=== PATIENT | male | born 2000 | race Caucasian/White ===

== ENCOUNTER 2025-01-31 12:56 | Emergency (ER) | payer MEDICAID, SELFPAY ==
--- NOTE | ~2025-01-31 | CT_ITS ---
CLINICAL HISTORY: large indurated abscess on R UE, HX of IVDU CT right upper extremity with contrast Comparison: None provided Findings: No significant degenerative change. No acute fractures or dislocations. Mildly diffuse subcutaneous edema along the distal aspect of the posterior humeral tissues suggesting cellulitis. Ill-defined small anterior region of focal convex soft tissue edema along the anterior distal humeral tissues just proximal to the antecubital fossa, may reflect developing abscess series 6, image 94 measuring 1.9 x 1.9 cm abutting the intramuscular compartment anteriorly. No soft tissue gas. Right axillary lymphadenopathy, likely reactive. IMPRESSION: 1. Distal cellulitis with a suspected small developing soft tissue abscess just proximal to the antecubital fossa. 2. Mild reactive axillary adenopathy. This document has been electronically signed by: Rex Fulton MD on 01/31/2025 18:49:37
[2025-01-31 13:11] VITALS: BP 102/76; BP 112/86; PULSE 55; PULSE 68; RESP 12; TEMP 36.8; O2SAT 96; O2SAT 97; BMI 25.7
[2025-01-31 13:21] VITALS: BP 112/86; PULSE 55; RESP 12; TEMP 36.8; O2SAT 96
--- NOTE | 2025-01-31 13:21 | PC.NURSE ---
Pt requests nicotine patch
--- NOTE | 2025-01-31 13:25 | PC.NURSE ---
Pt has been at [facility] 5 days. Was not able to take suboxone today.
--- NOTE | 2025-01-31 14:20 | ED.EXTPRO ---
HPI - Extremity Problem General Chief complaint: Extremity Problem Stated complaint: RUE ABSCESS FOR DAYS FROM FACILITY PER EMS Time Seen by Provider: 01/31/25 13:53 Source: patient, RN notes reviewed and old records reviewed Mode of arrival: ambulatory Limitations: no limitations History of Present Illness ED Provider: ANA M Mendez HPI Narrative: 24-year-old male with medical history of cocaine use disorder, inguinal hernia, hepatitis-C, presents to the ED from [facility] on section 12, for 1 week of mass on R UE. Patient states mass has been getting larger with increased pain. Patient states he has history of IVDU injecting cocaine into this area. Patient reports he has not used drugs or injected in this area for the past 2 weeks. Denies fever, chills, nausea, vomiting, abdominal pain. Related Data Previous Rx's ?Medication ?Instructions ?Recorded cephalexin 500 mg capsule 500 mg PO BID 7 days #14 caps 01/31/25 doxycycline hyclate 100 mg capsule 100 mg PO BID 7 days #14 caps 01/31/25 Allergies Allergy/AdvReac Type Severity Reaction Status Date / Time prednisone AdvReac Unknown Verified 01/31/25 13:20 Review of Systems Review of Systems: CONST: Negative for fever, body aches and chills. HENT: Negative for neck pain/stiffness, headache, congestion, sore throat, swelling. EYES: Negative for discharge/pain or vision changes. RESP: Negative for cough/hemoptysis and shortness of breath. CV: Negative chest pain, difficulty breathing, palpitations. ABD: Negative pain, nausea, vomiting. : Negative increase frequency, dysuria, blood in urine or stool. MUSC: Negative for muscle aches, edema. SKIN: Negative rash, lesions/sores. POS painful mass of R UE NEURO: Negative headache, dizziness, weakness. Yes all other systems are reviewed and are negative PMFSH Past Medical History Attestation statement: The following information was validated with the patient. Source: old records reviewed and nursing notes reviewed Social History Social History Smoked in Last 30 Days: Yes Use of substances other than those prescribed or required for medical reasons: Yes Substance Use Type: Crack/Cocaine Substance Use Frequency: Chronic Longstanding Advance Directives: No Advance Directives Information Provided: Yes Physical Exam Vital Signs: Vital Signs: Last Vital Signs Temp 98.3 F 01/31/25 13:21 Pulse 55 01/31/25 13:21 Resp 12 01/31/25 13:21 BP 112/86 01/31/25 13:21 Pulse Ox 96 01/31/25 13:21 O2 Del Method Room Air 01/31/25 13:21 BMI result Body Mass Index 25.7 GENERAL APPEARANCE: ?AxOx4, generally well-appearing, no acute distress. HEENT: ?NC, AT. MMM. EOMI, clear conjunctiva, oropharynx clear. NECK: ?Supple without lymphadenopathy.? No stiffness or restricted ROM. HEART:? Normal rate and regular rhythm, normal S1/S1, no m/r/g LUNGS:? CTAB, moving air well. No crackles or wheezes are heard. ABDOMEN: ?Soft, nontender, nondistended, no rigidity. There is a small reducible hernia of the R inguinal area without warmth, erythema. BACK: No CVAT, no obvious deformity. EXTREMITIES: ?Without cyanosis, clubbing or edema. There is a plum sized mass of the RUE with erythema and mild warmth, area is indurated with scarring from previous IVDU, no fluctuance, no active drainage. NEUROLOGICAL: ?Grossly nonfocal. Alert and oriented, moving all 4 extremities. Observed to ambulate with normal gait. Skin: ?Warm and dry without any rash. Medications Administered Discontinued Medications Generic Name Dose Route Start Last Admin Trade Name Freq PRN Reason Stop Dose Admin Iohexol 100 ml 01/31/25 18:17 01/31/25 18:19 Iohexol 350 Mg/Ml 100 Ml Infus..Btl IV 01/31/25 18:18 85 ml ONCE ONE Administration Medical Decision Making Medical Decision Making MDM Narrative: 24-year-old male with medical history of cocaine use disorder, inguinal hernia, hepatitis-C, presents to the ED from [facility] on section 12, for 1 week of mass on R UE. Patient states mass has been getting larger with increased pain. Patient states he has history of IVDU injecting cocaine into this area. Patient reports he has not used drugs or injected in this area for the past 2 weeks. Denies fever, chills, nausea, vomiting, abdominal pain. VS on initial observation-BP 112/86, pulse rate of 55, respiratory rate of 12, afebrile with oral temp of 98.3?, O2 saturation 96% on room air. Plan: labs, LIZ, CT R humerus Labs without leukocytosis/leukopenia, H&H stable, ESR elevated at 16, transaminitis with AST of 50, ALT 45, elevated CRP at 1.21 CT of right humerus reveals distal cellulitis with a suspected small developing soft tissue abscess proximal to the antecubital fossa, with mild reactive axillary adenopathy. Abscess of right upper extremity is indurated, without fluctuance, no active drainage, no indication for I and D at this time. Patient will be discharged back to [facility] with 7 day course of Keflex and doxycycline for bacterial coverage. I counseled patient on strict return precautions, patient is in agreement with the plan. Differential Diagnosis Differential Diagnoses: The differential diagnosis associated with the presentation includes Osteomyelitis Cellulitis Abscess Admission/Observation Consideration of admission/observation: Escalation of care including admission/observation considered Lab Data MDM Lab Attestation statement: I reviewed the patient's lab results. 01/31/25 15:08 01/31/25 15:08 Labs: Lab Results 01/31/25 01/31/25 01/31/25 Range/Units 15:08 15:37 15:38 WBC 8.3 (4.8-10.8) X10*3/uL RBC 4.15 L (4.60-5.80) X10*6/uL Hgb 13.0 L (14.0-18.0) g/dl Hct 39.3 L (42.0-52.0) % MCV 94.7 (80.0-98.0) fL MCH 31.3 (27.0-33.0) pg MCHC 33.1 (31.0-36.0) g/dl RDW 13.9 (11.0-16.0) % Plt Count 303 (160-400) X10*3/uL MPV 9.0 L (9.4-12.4) fL Immature Gran % (Auto) 0.4 (0.0-0.4) % Neut % (Auto) 66.2 (45-73) % Lymph % (Auto) 27.2 (20-40) % Whitman % (Auto) 4.7 (2-11) % Eos % (Auto) 0.8 (0-4) % Baso % (Auto) 0.7 (0-2) % Lymph # (Auto) 2.3 (1.2-4.9) X10*3/uL Whitman # (Auto) 0.4 (0.1-1.2) X10*3/uL Eos # (Auto) 0.1 (0.0-0.4) X10*3/uL Baso # (Auto) 0.1 (0.0-0.2) X10*3/uL Abs Immat Gran (auto) 0.03 (0.00-0.03) X10*3/uL Absolute Neuts (auto) 5.5 (2.0-8.3) x10*3/uL Absolute Nucleated RBC 0.000 (0.0-0.012) X10*3/uL Nucleated RBC % (auto) 0.0 (0.0-0.2) /100WBC ESR 16 H (0-15) MM/HR Sodium 139 (135-145) mmol/L Potassium 4.1 (3.3-5.1) mmol/L Chloride 101 (96-108) mmol/L Carbon Dioxide 27 (22-29) mmol/L Anion Gap 15 (12-20) BUN 16 (9-16) mg/dL Creatinine 1.35 (0.5-1.4) mg/dL Estim Creat Clear Calc 86.3 Estimated GFR > 60 Random Glucose 81 (60-115) mg/dL Lactic Acid 1.3 (0.5-2.0) mmol/L Calcium 9.8 (8.4-10.2) mg/dL Magnesium 2.1 (1.6-2.6) mg/dL Total Bilirubin 0.2 (0.0-1.0) mg/dL AST 50 H (5-37) U/L ALT 45 H (0-40) U/L Alkaline Phosphatase 69 (39-117) U/L C-Reactive Protein 1.21 H (< or = 0.50) mg/dL Total Protein 7.7 (6.5-8.0) g/dL Albumin 4.6 (3.5-5.0) g/dL Independent Interpretation I performed an independent interpretation of an: CT Scan Interpretation: I personally interpreted the CT of the right humerus which reveals small abscess, without gas in the tissue or osteomyelitis, I agree with the radiologist's interpretation Radiology Impression Discussion of test interpretation with radiology: I have reviewed the radiologist's reading. Radiologist Impression: CT R humerus Findings: No significant degenerative change. No acute fractures or dislocations. Mildly diffuse subcutaneous edema along the distal aspect of the posterior humeral tissues suggesting cellulitis. Ill-defined small anterior region of focal convex soft tissue edema along the anterior distal humeral tissues just proximal to the antecubital fossa, may reflect developing abscess series 6, image 94 measuring 1.9 x 1.9 cm abutting the intramuscular compartment anteriorly. No soft tissue gas. Right axillary lymphadenopathy, likely reactive. IMPRESSION: 1. Distal cellulitis with a suspected small developing soft tissue abscess just proximal to the antecubital fossa. 2. Mild reactive axillary adenopathy. This document has been electronically signed by: Rex Fulton MD on 01/31/2025 18:49:37 Dictated By: Rex Fulton MD Signed By: <Electronically signed by Rex Fulton MD in OV> 01/31/25 3399 External Record Review External record reviewed: Inpatient record, Office record and Outpatient record Chronic Conditions Patient?s care impacted by: Other (Cocaine use disorder, IVDU, right-sided inguinal hernia, hepatitis-C) Social Determinants Patient?s care significantly limited by Social Determinants of Health including: Other Social Determinant of Health Discharge Plan Discharge Clinical Impression: Abscess Patient Disposition: Xfer [facility]iatric [facility]osp Instructions: Abscess (ED) Additional Instructions: You were evaluated in the ED today due to an abscess of your right arm. Your CT scan today shows the abscess is in a very early stage, and does not involve the soft tissue, muscle or bones. The abscess is not ready for drainage as it is very hard. You are being discharged with a 7 day course of Keflex and doxycycline for bacterial coverage. Additionally please do warm compresses to the area twice a day until the area resolves and/or is ready for drainage. Please return to the emergency department if you experience fevers over 100.4? that are not controlled by Tylenol or Motrin, worsening pain of your right arm, pus like drainage from the right arm, or any new/worsening/concerning symptoms. Prescriptions: New cephalexin 500 mg capsule 500 mg PO BID 7 Days Qty: 14 0RF doxycycline hyclate 100 mg capsule 100 mg PO BID 7 Days Qty: 14 0RF Print Language: Khmer
[2025-01-31 15:12] LABS: MANUAL DIFF FLAG NO
[2025-01-31 15:15] LABS: Hematocrit 39.3 % (42.0-52.0); Hemoglobin 13.0 g/dl (14.0-18.0); Imm Gran Abs Auto 0.03 X10*3/uL (0.00-0.03); Imm Gran Pct Auto 0.4 % (0.0-0.4); Lymphocytes Absolute Auto 2.3 X10*3/uL (1.2-4.9); Mean Corpuscular HGB Conc 33.1 g/dl (31.0-36.0); Mean Corpuscular Hemoglobin 31.3 pg (27.0-33.0); Mean Corpuscular Volume 94.7 fL (80.0-98.0); NRBC Abs Auto 0.000 X10*3/uL (0.0-0.012); NRBC Pct Auto 0.0 /100WBC (0.0-0.2); Platelet Count 303 X10*3/uL (160-400); Red Blood Count 4.15 X10*6/uL (4.60-5.80); White Blood Count 8.3 X10*3/uL (4.8-10.8)
--- NOTE | 2025-01-31 15:22 | PC.NURSE ---
Assumed care of pt, pt resting, no s/s of distress, sts a little pain at R upper arm at site from injection. RR even and unlabored, denies CP or SOB. Pt requesting suboxone d/t missed dose today.
[2025-01-31 15:51] LABS: Alanine Aminotransferase 45 U/L (0-40); Albumin Level 4.6 g/dL (3.5-5.0); Alkaline Phosphatase 69 U/L (39-117); Anion Gap 15 (12-20); Aspartate Amino Transferase 50 U/L (5-37); Blood Urea Nitrogen 16 mg/dL (9-16); Calcium 9.8 mg/dL (8.4-10.2); Carbon Dioxide 27 mmol/L (22-29); Chloride 101 mmol/L (96-108); Creatinine Clr Calc Pharmacy 86.3; Estimated Glomerular Filt Rate > 60; Magnesium 2.1 mg/dL (1.6-2.6); Potassium 4.1 mmol/L (3.3-5.1); Sodium 139 mmol/L (135-145); Total Protein 7.7 g/dL (6.5-8.0)
[2025-01-31] MEDS: iohexoL 350 MG/ML 100 ML INFUS..BTL IV (18:19)
--- NOTE | 2025-01-31 19:14 | PC.NURSE ---
pt removed own IV, swearing at staff, throwing food in hallway. security at bedside
--- NOTE | 2025-01-31 19:29 | PC.NURSE ---
report given to He[facility]
--- NOTE | 2025-01-31 20:11 | PC.NURSE ---
pt refused vitals and refused to sign D/C paperwork. pt left with EMS for return back to [facility]
[2025-01-31 20:26] VITALS: BP 112/86; PULSE 55; RESP 12; TEMP 36.8; O2SAT 96
== END 2025-01-31 20:28 ==
PROVIDERS: Emergency Provider Emergency Medicine
DX: L02.413 Cutaneous abscess of right upper limb (principal); F14.90 Cocaine use, unspecified, uncomplicated; M79.601 Pain in right arm; Z79.899 Other long term (current) drug therapy
CPT/HCPCS: 36415; 73201; 80053; 83605; 83735; 85025; 85652; 86140; 87040; 99284; 99285; Q9967

== ENCOUNTER → 2025-01-31 14:20 | Outpatient (BNV) | payer MEDICAID, SELFPAY | PROVIDERS: Emergency Provider Emergency Medicine; Visit Provider Radiology Diagnostic Radiology | DX: L02.413 Cutaneous abscess of right upper limb (principal); R59.0 Localized enlarged lymph nodes; L03.113 Cellulitis of right upper limb | CPT/HCPCS: 73201 ==